=== PATIENT | female | born 1965 | race Caucasian/White ===

== ENCOUNTER → 2017-04-26 | Day surgery (SDC) | payer OTHER ==
[~2017-04-26] VITALS: Ht 152.4 cm; Wt 65.9 kg
[~2017-04-26] MED LIST: *RESP: ALBUTEROL 2.5 MG/3 ML NEB (PRN) PERIprocedural Use ONLY NEB ONE; ACETAMINOPHEN 1000 MG/100 ML VIAL IV ONE; ALPR.25 PO; ATOR10TA15 PO; BUPIVACAINE HCL PF 0.5% 10 ML VIAL NERV BLOCK ONE; BUPIVACAINE HCL PF 0.5% 30 ML VIAL NERV BLOCK ONE; CHLORHEXIDINE GLUCONATE 2 % 1 PACK (2 CLOTHS) TOPICAL PRN; DO NOT ADM ANY ANTICOAGULANT DRUGS PRN; FAMOTIDINE 20 MG/2 ML VIAL ONE; HYDROmorphone HCL PF 1 MG/ML VIAL IV PRN; INSULIN HUMAN REGULAR 1,000 UNITS/10 ML VIAL SQ PRN; LACTATED RINGER'S 1000 ML INJ 1,000 ML IV ONE; LACTATED RINGER'S 1000 ML INJ 1,000 ML IV SCH; LACTATED RINGER'S 1000 ML IV PRN; LIDOCAINE HCL 2% 50 ML VIAL INFIL ONE; LISI-519 PO; METOPROLOL TARTRATE 25 MG TAB PO PRN; MIDAZOLAM HCL 2 MG/2 ML VIAL ONE; MORPHINE SULFATE 4 MG/ML INJ ONE; MULT1TAB61 PO; NEOMYCIN/POLYMYXIN 1 ML G.U. IRRIGANT TOPICAL ONE; NEOSTIGMINE 3 MG/3 ML SYR IV ONE; ONDANSETRON HCL 4 MG/2 ML VIAL IV PUSH ONE; ONDANSETRON HCL 4 MG/2 ML VIAL IV PUSH PRN; PHENYLEPH/NS 1000 MCG/10 ML SYR IV ONE; POVIDONE IODINE 5% (ANTISEPSIS KIT) 4 APPLICATIONS EACH NARE PRN; PROPOFOL 200 MG/20 ML AMP IV ONE; SODIUM CHLORID 0.9% 500 ML IV PRN; VENL150T PO; ceFAZolin 2 GM PREMIX 50 ML IV SCH; ePHEDrine/NS 25 MG/5 ML SYR IV ONE; fentaNYL CITRATE 250 MCG/5 ML AMP ONE
[2017-04-26 07:15] VITALS: BP 100/57; PULSE 78; RESP 18; TEMP 98.7; O2SAT 98
--- NOTE | 2017-04-26 13:26 | EKG ---
Date Performed: 04/26/2017 Time Performed: 07:41:10 PTAGE: 51 years EKG: Sinus rhythm NORMAL ECG NO PREVIOUS TRACING DOCTOR: Jimmy Gutierrez Interpretating Date/Time 04/26/2017 13:23:04
--- NOTE | 2017-04-26 14:56 | RADRPT ---
EXAM DATE/TIME: 04/26/2017 10:50 [facility] COMPARISON: No previous studies available for comparison. INDICATIONS : ORIF RIGHT WRIST MEDICAL HISTORY : UNKNOWN SURGICAL HISTORY : UNKNOWN ENCOUNTER: Initial ACUITY: 1 day PAIN SCORE: Non-responsive. LOCATION: Right WRIST FINDINGS: There are postsurgical changes with operative reduction and internal fixation.. The alignment is shady omic. CONCLUSION: Postsurgical changes as above. Jimmy Ryder MD on April 26, 2017 at 14:54 Board Certified Radiologist. This report was verified electronically.
[2017-04-26 15:40] VITALS: BP 109/76; PULSE 98; RESP 18; TEMP 97.9; O2SAT 93
--- NOTE | 2017-04-29 08:58 | MP ---
cc: ROSALINE DOMINGO DATE OF SURGERY: 04/26/2017 PREOPERATIVE DIAGNOSIS 1. Right wrist scapholunate widening and arthritis. POSTOPERATIVE DIAGNOSIS 1. Right wrist scapholunate widening and arthritis. PROCEDURE 1. Scaphoid excision, four corner fusion right wrist with DBX allograft and skeletal dynamics compression screws. 2. Posterior interosseous nerve neurectomy right wrist. SURGEON Dr. Rosaline Domingo. ANESTHESIA Regional and sedation. TOURNIQUET TIME Two hours at 250 mmHg. IMPLANTS Two Skeletal Dynamics reduct compression screws. One 3.5 and one 2.5 mm. DBX bone graft. INDICATIONS FOR PROCEDURE Farideh Mejia is a 51-year-old right-hand dominant female who presents with persistent pain over the right wrist. Many years ago she did have excision of a dorsal ganglion. She has had short-term improvement with corticosteroid injection but persistent pain. X-rays and MRI reviewed with the patient. MRI shows significant widening of the scapholunate interval, significant arthritis between the radius and scaphoid in the mid carpal joint, possible maintained cartilage over the lunate. Treatment options were discussed with the patient including conservative treatment including splinting, corticosteroid injection versus surgical intervention including possible scaphoid excision, four corner fusion, possible full wrist fusion. The patient elected to proceed. Risks were explained to her to include but not limited to wound complications, infection, sepsis, nonunion, malunion, persistent pain, need for hardware removal, paresthesias, need for a full fusion, and she elected to proceed. She did quit smoking prior to the procedure. DESCRIPTION OF PROCEDURE The patient was identified in the preoperative holding area. The correct extremity was marked. The patient was taken to the operating room where anesthesia was induced. The right upper extremity was prepped and draped in normal sterile fashion. Tourniquet was inflated to 250 mmHg for 2 hours. A longitudinal incision was made on the dorsum of the wrist. The extensor retinaculum was identified and z-lenghthened and protected throughout the procedure for later repair. The extensor pollicis longus as well as the fourth and fifth extensor compartments were protected throughout the procedure. There was some scarring due to the prior surgical excision of the dorsal ganglia in the past. The dorsal capsule was incised with a radially based flap. The posterior interosseous nerve neurectomy was performed. The wrist joint was identified. There was significant arthritis between the scaphoid and the scaphoid fossa on the radius. The scaphoid was then removed in its entirety and confirmed under fluoroscopy and the remainder of the joint was inspected including the articular surface of the lunate, the radius and the triquetrum. There remained preserved cartilage over the lunate and radius and triquetrum so decision was made to perform a scaphoid excision four corner fusion. The patient understands that she is at risk for nonunion, malunion, need for additional fusion but if possible she elected to proceed with partial fusion to maintain some wrist motion. K-wires were placed to use as joysticks and then the surfaces between the lunate and capitate which did have significant arthritis and the triquetrum and hamate were debrided with curettes, rongeurs and a water cooled bur. Then following this the K-wires for compression screws were placed across the lunate to the capitate and then the triquetrum to the hamate. This was confirmed under fluoroscopy to have good alignment on both the AP and lateral planes, ensuring reduction of the lunate under the capitate with reduction of the DISI deformity. Then a Skeletal Dynamics 3.5 mm compression screw was placed from the lunate to the capitate after the guidewire was placed. The area was drilled and then measured for a 3.5 x 22 mm screw. This had good compression of the surface between the lunate and capitate and was confirmed again on fluoroscopy to be in good position and good alignment and buried in the subcondral bone under the articular cartilage. Next, the guidewire was placed for a 2.5 mm compression screw from the triquetrum to the hamate. Guidewire was placed, then over drilled and measured for a 2.5 mm x 20-mm compression screw which was placed and confirmed under fluoroscopy and again had good compression of the joint surface and buried in the subcondral bone under the articular cartilage.Then a portion of the scaphoid which had been used as bone graft was mixed with DBX bone graft and placed into the site again between the lunate and capitate and the triquetrum and hamate. This provided stable motion which was again confirmed under fluoroscopy. The patient had approximately 40-50 degrees of wrist extension and flexion on the table. The area was irrigated. The tourniquet was released. Hemostasis was obtained. The capsule was closed with PDS. The extensor pollicis longus was transposed outside and then the extensor retinaculum was closed over the fourth and fifth extensor compartments again with PDS. Skin was closed with Monocryl and Nylon. Approximately 10 ccs of 2% lidocaine with no epinephrine was used for local anesthesia over the area as anesthesia preferred to evaluate the patient in the recovery room prior to possible block. The patient was then placed into a short-arm splint and awoken from anesthesia without any complications. She understands the postoperative course, the importance of non weightbearing, and of tobacco cessation. She understands she will have decreased range of motion but will have improved range of motion as compared to fusion. She understands she is at risk for nonunion, malunion, persistent pain and need for full fusion. The patient was awoken from anesthesia without any complications. She was given a prescription for antibiotics and pain medication. MD MARLO Munoz/MELQUIADES /5:44 PM /8:26 AM MANO[facility]
== END | disposition home or self-care (01) ==
LOC: HSDC 06:35
PROVIDERS: ATTEND Orthopaedic Surgery
DX: M19.031 Primary osteoarthritis, right wrist (principal); I10 Essential (primary) hypertension; Z01.810 Encounter for preprocedural cardiovascular examination
CPT/HCPCS: 01830; 25135; 25810; 64415; 73110; 76000; 93005; C1713; J0131; J0690; J2250; J2270; J2370; J2405; J2710; J3010; J7120; J7613